=== PATIENT | male | born 1940 | race Caucasian/White ===

== ENCOUNTER → 2019-08-06 18:59 | Outpatient (CLI) | payer MEDICARE, SELFPAY ==
--- NOTE | 2019-08-06 19:03 | DI.RAD.S_ITS ---
PROCEDURE: XR CHEST 2V INDICATIONS: DYSPNEA TECHNIQUE: 2 views of the chest were acquired. COMPARISON: None. FINDINGS: Surgical changes and devices: None. Lungs and pleura: Lungs are mildly hyperinflated but clear. No pleural effusions or pneumothorax. Mediastinum: Mediastinal contours are normal. Prominent central pulmonary arteries. Heart size is normal. Bones and chest wall: No suspicious bony abnormalities. Soft tissues appear unremarkable. IMPRESSION: 1. No acute cardiopulmonary disease. 2. Changes of mild hyperinflation suggests emphysema or asthma. Dictated by: Mariola Cadena M.D. on 08/06/2019 at 21:34 Approved by: Mariola Cadena M.D. on 08/06/2019 at 21:36
[2019-08-06 19:18] LABS: Bacteria Urine None Seen; RBC Urine None Seen (0-5/HPF)
[2019-08-06 19:30] LABS: Mean Corpuscular Volume 89.8 fL (80-100); Red Cell Distribution Width 13.2 % (11.6-14.8)
[2019-08-06 19:36] LABS: Hematocrit 42.1 % (41-53); Hemoglobin 14.8 g/dL (13.5-17.5); Mean Corpuscular HGB Conc 35.1 % (30-36); Mean Corpuscular Hemoglobin 31.5 PG (26-34); Platelet Count 99 X10^3/uL (150-400); Red Blood Cell Count 4.68 X10^6/uL (4.5-5.9); White Blood Cell Count 7.6 X10^3/uL (4.5-11.0)
[2019-08-06 19:37] LABS: Appearance Urine UA CLEAR; Bilirubin Urine UA NEGATIVE (NEGATIVE); Color Urine UA YELLOW; Glucose Urine UA 1+ g/dL (Negative); Ketones Urine UA NEGATIVE (NEGATIVE); Leukocyte Esterase Urine UA NEGATIVE (NEGATIVE); Nitrite Urine UA NEGATIVE (Negative); Occult Blood Urine UA NEGATIVE (Negative); Protein Urine UA NEGATIVE (Negative); Specific Gravity Urine UA 1.025 (1.000-1.035); Urobilinogen Urine UA 0.2 E.U./dL (0.2)
[2019-08-06 19:43] LABS: Culture Indicated Urine Cult Not Indicated; Squamous Epithelial Cell Urine 0-1 /HPF (0-5/HPF); WBC Urine 0-1/HPF (0-5/HPF)
[2019-08-06 19:52] LABS: Alanine Aminotransferase 29 IU/L (<50); Albumin 4.8 g/dL (3.5-5.0); Albumin Globulin Ratio 1.3 (1.0-2.8); Alkaline Phosphatase 90 U/L (38-126); Aspartate Aminotransferase 36 IU/L (17-59); Bilirubin Total 0.5 mg/dL (0.2-1.3); Blood Urea Nitrogen 37 mg/dL (9-20); Calcium 9.8 mg/dL (8.4-10.2); Carbon Dioxide 26 mmol/L (22-32); Chloride 100 mmol/L (98-107); Estimated Glomerular Filt Rate 39.7 mL/min (>60); Globulin 3.7 g/dL (1.7-4.1); Glucose 260 mg/dL (80-110); HEMOLYSIS < 15 (0-50); Potassium 5.2 mmol/L (3.4-5.1); Sodium 135 mmol/L (137-145); Total Protein 8.5 g/dL (6.3-8.2)
[2019-08-06 20:01] LABS: NT-proBNP (BNP-Adult 18+) 66 pg/mL (<450)
[2019-08-06 20:10] LABS: Neutrophils Absolute Manual 4484 /uL (3000-5900); Platelet Estimate Decreased on smear; RBC Morphology Normal Morphology; Total Cells Counted 100
== END ==
PROVIDERS: Referring Provider Internal Medicine; Visit Provider Internal Medicine
DX: R06.00 Dyspnea, unspecified (principal); E11.65 Type 2 diabetes mellitus with hyperglycemia
CPT/HCPCS: 36415; 71046; 80053; 81001; 83880; 85025

== ENCOUNTER → 2019-11-01 12:28 | Outpatient (CLI) | payer MEDICARE, SELFPAY ==
[2019-11-01 14:32] LABS: Add Manual Diff / Slide Review NO; Basophils Absolute Auto 0 /uL (0-100); Basophils Percent Auto 0.3 % (0-2); Eosinophils Absolute Auto 100 /uL (0-450); Eosinophils Percent Auto 1.3 % (2-4); Hematocrit 38.4 % (41-53); Hemoglobin 13.1 g/dL (13.5-17.5); Lymphocytes Absolute Auto 1600 /uL (1100-4500); Mean Corpuscular Hemoglobin 30.6 PG (26-34); Mean Corpuscular Volume 89.8 fL (80-100); Monocytes Absolute Auto 300 /uL (0-900); Monocytes Percent Auto 5.2 % (3-14); Neutrophils Absolute Auto 3700 /uL (1500-7000); Neutrophils Percent Auto 65.2 % (50-75); Platelet Count 133 X10^3/uL (150-400); Red Blood Cell Count 4.27 X10^6/uL (4.5-5.9); White Blood Cell Count 5.7 X10^3/uL (4.5-11.0)
[2019-11-01 14:38] LABS: INR 1.1 (0.9-1.3); Prothrombin Time 12.1 SECONDS (10.1-12.7)
[2019-11-01 14:40] LABS: PTT Partial Thromboplastin Tim 37 SECONDS (26.4-36.2)
== END ==
PROVIDERS: PCP Student in an Organized Health Care Education/Training Program; Referring Provider Student in an Organized Health Care Education/Training Program; Visit Provider Student in an Organized Health Care Education/Training Program
DX: T14.8XXA Other injury of unspecified body region, initial encounter (principal)
CPT/HCPCS: 36415; 85025; 85610; 85730

== ENCOUNTER → 2019-11-13 11:49 | Outpatient (CLI) | payer MEDICARE, SELFPAY ==
--- NOTE | 2019-11-13 | DI.CT.S_ITS ---
PROCEDURE: CT CHEST ABD PEL WO CON INDICATIONS: Pruritis, unspecified TECHNIQUE: After the administration of oral contrast, 5 mm thick sections acquired from the lung apices to the symphysis pubis. 5 mm thick coronal and sagittal reformats acquired, with additional 7 mm coronal MIP reformats through the lungs. For radiation dose reduction, the following was used: automated exposure control, adjustment of mA and/or kV according to patient size. COMPARISON: [facility], CT, ABDOMEN WITH CONTRAST, 06/15/2016, 12:31. FINDINGS: Image quality: Excellent. CHEST: Lungs and pleura: No acute pulmonary opacities. No pleural effusions or pneumothorax. Central and peripheral airways are patent are normal in caliber. Mediastinum: Heart size is normal. Scattered atherosclerotic calcifications of the coronary arteries are noted.No pericardial effusion. No mediastinal adenopathy by CT size criteria. Thoracic aorta and central pulmonary arteries are normal in size. Esophagus is normal in caliber. No hiatal hernia. Chest wall: No axillary or supraclavicular adenopathy by size criteria. Thyroid gland is unremarkable. ABDOMEN: Solid organs: Liver demonstrates heterogeneous attenuation in the central portion of the right hepatic lobe extending towards the bar[place] hepatis. This appears to be a new finding. Biliary stent is again noted. Persistent but decreased conspicuity of intrahepatic biliary ductal dilatation. Gallbladder appears unremarkable. Previously described large heterogeneous cystic mass involving the head and body of the pancreas appears significantly smaller. There is irregularity and heterogeneity of the pancreatic parenchyma with likely main pancreatic ductal dilatation and coarse pancreatic calcification. There is also soft tissue prominence near the ampulla and adjacent duodenum. Lack of intravenous contrast limits further characterization. Spleen is enlarged measuring 14.3 cm in maximum dimension. No adrenal nodules. Atrophic left kidney. Multiple bilateral renal cysts. Persistent right peripelvic renal cysts. No amaury hydronephrosis. No nephrolithiasis seen. Peritoneum and bowel: Mild circumferential thickening of the ascending colon possibly related to incomplete distention. Small and large bowel loops are normal in caliber and wall thickness. No free fluid or air. Normal appendix Nodes and vessels: No retroperitoneal or mesenteric adenopathy by size criteria. Aorta and inferior vena cava are normal in size. Miscellaneous: No ventral hernias. PELVIS: Genitourinary: Bladder wall thickness is normal. Miscellaneous: No inguinal hernias or adenopathy. Bones: No suspicious bony lesions. No acute vertebral body compression fractures. Multilevel degenerative changes of the imaged spine. IMPRESSION: 1. 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 Presence of a biliary stent with persistent intrahepatic ductal dilatation. Given no recent imaging, findings may represent tumor recurrence or progression. Characterization limited by lack of intravenous contrast. 2. Splenomegaly. 3. Mild circumferential thickening of the ascending colon which may be in part due to incomplete distention. Nonspecific colitis either inflammatory or infectious may have a similar appearance. 4. Other chronic findings as above. Dictated by: Lukas Worley M.D. on 11/13/2019 at 15:21 Approved by: Lukas Worley M.D. on 11/13/2019 at 15:40
[2019-11-13 13:29] LABS: Hematocrit 35.3 % (41-53); Hemoglobin 11.9 g/dL (13.5-17.5); Mean Corpuscular HGB Conc 33.7 % (30-36); Mean Corpuscular Hemoglobin 30.3 PG (26-34); Mean Corpuscular Volume 89.8 fL (80-100); Platelet Count 108 X10^3/uL (150-400); Red Blood Cell Count 3.93 X10^6/uL (4.5-5.9); Red Cell Distribution Width 15.7 % (11.6-14.8); White Blood Cell Count 3.2 X10^3/uL (4.5-11.0)
[2019-11-13 13:39] LABS: Appearance Urine UA CLEAR; Bilirubin Urine UA 2+ (NEGATIVE); Glucose Urine UA NEGATIVE (Negative); Ketones Urine UA NEGATIVE (NEGATIVE); Leukocyte Esterase Urine UA NEGATIVE (NEGATIVE); Nitrite Urine UA NEGATIVE (Negative); Occult Blood Urine UA NEGATIVE (Negative); Protein Urine UA NEGATIVE (Negative); Urobilinogen Urine UA 0.2 E.U./dL (0.2)
[2019-11-13 13:40] LABS: Color Urine UA Dark Yellow
[2019-11-13 13:41] LABS: Fibrinogen 486 mg/dL (211-428); INR 1.1 (0.9-1.3); Prothrombin Time 12.3 SECONDS (10.1-12.7)
[2019-11-13 13:43] LABS: PTT Partial Thromboplastin Tim 39 SECONDS (26.4-36.2)
[2019-11-13 13:47] LABS: Neutrophils Absolute Manual 2144 /uL (3000-5900); RBC Morphology Normal Morphology; Total Cells Counted 100
[2019-11-13 14:00] LABS: Ictotest Urine Positive (Negative)
[2019-11-13 14:01] LABS: Alanine Aminotransferase 142 IU/L (<50); Alkaline Phosphatase 257 U/L (38-126); Amylase 72 U/L (30-110); Aspartate Aminotransferase 96 IU/L (17-59); BUN Creatinine Ratio 16.2 (6-22); Bilirubin Total 5.5 mg/dL (0.2-1.3); Blood Urea Nitrogen 18 mg/dL (9-20); Calcium 9.2 mg/dL (8.4-10.2); Carbon Dioxide 23 mmol/L (22-32); Chloride 105 mmol/L (98-107); Estimated Glomerular Filt Rate > 60.0 mL/min (>60); Globulin 3.9 g/dL (1.7-4.1); Glucose 140 mg/dL (80-110); HEMOLYSIS < 15 (0-50); Lipase 164 U/L (23-300); Potassium 4.5 mmol/L (3.4-5.1); Sodium 136 mmol/L (137-145); Total Protein 7.9 g/dL (6.3-8.2)
[2019-11-13 14:01] LABS: Bacteria Urine Occasional (0-1); Culture Indicated Urine Cult Not Indicated; Mucus Urine 1+ (Negative); RBC Urine 0-1/HPF (0-5/HPF); Squamous Epithelial Cell Urine 0-1 /HPF (0-5/HPF); WBC Urine 0-1/HPF (0-5/HPF)
== END ==
PROVIDERS: PCP Internal Medicine; Referring Provider Internal Medicine; Visit Provider Internal Medicine
DX: L29.9 Pruritus, unspecified (principal); R93.89 Abnormal findings on diagnostic imaging of other specified body structures; R63.4 Abnormal weight loss; R23.3 Spontaneous ecchymoses; N18.3 Chronic kidney disease, stage 3 (moderate); I25.10 Atherosclerotic heart disease of native coronary artery without angina pectoris; N28.1 Cyst of kidney, acquired; R16.1 Splenomegaly, not elsewhere classified; K86.9 Disease of pancreas, unspecified; K83.8 Other specified diseases of biliary tract; R39.89 Other symptoms and signs involving the genitourinary system
CPT/HCPCS: 36415; 71250; 74176; 80053; 81001; 82150; 83690; 85002; 85025; 85384; 85610; 85730

== ENCOUNTER → 2019-12-18 11:48 | Outpatient (CLI) | payer MEDICARE, SELFPAY ==
[2019-12-18 12:04] LABS: Bacteria Urine None Seen; RBC Urine None Seen (0-5/HPF); WBC Urine None Seen (0-5/HPF)
[2019-12-18 12:31] LABS: Lactate (Lactic Acid) 1.7 mmol/L (0.7-2.1)
[2019-12-18 13:09] LABS: Add Manual Diff / Slide Review NO; Basophils Absolute Auto 0 /uL (0-100); Basophils Percent Auto 0.3 % (0-2); Eosinophils Absolute Auto 200 /uL (0-450); Eosinophils Percent Auto 2.4 % (2-4); Hematocrit 35.5 % (41-53); Hemoglobin 12.4 g/dL (13.5-17.5); Lymphocytes Absolute Auto 1200 /uL (1100-4500); Lymphocytes Percent Auto 15.8 % (25-40); Mean Corpuscular HGB Conc 34.8 % (30-36); Mean Corpuscular Hemoglobin 30.4 PG (26-34); Mean Corpuscular Volume 87.4 fL (80-100); Monocytes Absolute Auto 500 /uL (0-900); Monocytes Percent Auto 6.3 % (3-14); Neutrophils Absolute Auto 5500 /uL (1500-7000); Neutrophils Percent Auto 75.2 % (50-75); Platelet Count 98 X10^3/uL (150-400); Red Blood Cell Count 4.06 X10^6/uL (4.5-5.9); Red Cell Distribution Width 15.2 % (11.6-14.8); White Blood Cell Count 7.3 X10^3/uL (4.5-11.0)
[2019-12-18 13:11] LABS: Appearance Urine UA CLEAR; Bilirubin Urine UA NEGATIVE (NEGATIVE); Color Urine UA YELLOW; Glucose Urine UA 2+ g/dL (Negative); Ketones Urine UA NEGATIVE (NEGATIVE); Leukocyte Esterase Urine UA NEGATIVE (NEGATIVE); Nitrite Urine UA NEGATIVE (Negative); Occult Blood Urine UA NEGATIVE (Negative); Protein Urine UA NEGATIVE (Negative); Specific Gravity Urine UA 1.015 (1.000-1.035); Urobilinogen Urine UA 0.2 E.U./dL (0.2); pH Urine UA 5.5 (4.5-8.0)
[2019-12-18 13:19] LABS: Culture Indicated Urine Cult Not Indicated; Urine Comments Microscopic Normal
[2019-12-18 13:21] LABS: Alanine Aminotransferase 30 IU/L (<50); Albumin Globulin Ratio 1.2 (1.0-2.8); Alkaline Phosphatase 237 U/L (38-126); Aspartate Aminotransferase 28 IU/L (17-59); BUN Creatinine Ratio 21.2 (6-22); Bilirubin Total 0.9 mg/dL (0.2-1.3); Blood Urea Nitrogen 22 mg/dL (9-20); Calcium 9.6 mg/dL (8.4-10.2); Carbon Dioxide 26 mmol/L (22-32); Chloride 96 mmol/L (98-107); Estimated Glomerular Filt Rate > 60.0 mL/min (>60); Globulin 3.4 g/dL (1.7-4.1); Glucose 314 mg/dL (80-110); HEMOLYSIS < 15 (0-50); Lipase 105 U/L (23-300); Sodium 131 mmol/L (137-145); Total Protein 7.4 g/dL (6.3-8.2)
[2019-12-18 13:22] LABS: Potassium 5.7 mmol/L (3.4-5.1)
[2019-12-18 13:29] LABS: NT-proBNP (BNP-Adult 18+) 100 pg/mL (<450)
== END ==
PROVIDERS: PCP Internal Medicine; Referring Provider Internal Medicine; Visit Provider Internal Medicine
DX: R68.89 Other general symptoms and signs (principal); R17 Unspecified jaundice; I95.9 Hypotension, unspecified; R06.00 Dyspnea, unspecified
CPT/HCPCS: 36415; 80053; 81001; 83605; 83690; 83880; 85025; 87086

== ENCOUNTER → 2019-12-20 11:25 | Outpatient (CLI) | payer MEDICARE, SELFPAY ==
[2019-12-20 13:57] LABS: BUN Creatinine Ratio 19.2 (6-22); Blood Urea Nitrogen 20 mg/dL (9-20); Carbon Dioxide 25 mmol/L (22-32); Chloride 99 mmol/L (98-107); Estimated Glomerular Filt Rate > 60.0 mL/min (>60); Glucose 265 mg/dL (80-110); HEMOLYSIS < 15 (0-50); Potassium 4.5 mmol/L (3.4-5.1); Sodium 131 mmol/L (137-145)
[2019-12-20 14:21] LABS: Sodium Urine Random 20 mmol/L (30-90)
[2019-12-21 13:13] LABS: Osmolality Urine 421 mOsmol/kg (.); Osmolality, Serum 288 mOsmol/kg (280-301)
== END ==
PROVIDERS: PCP Internal Medicine; Referring Provider Internal Medicine; Visit Provider Internal Medicine
DX: E87.5 Hyperkalemia (principal)
CPT/HCPCS: 36415; 80048; 83930; 83935; 84300

== ENCOUNTER → 2020-01-22 11:32 | Outpatient (CLI) | payer MEDICARE, SELFPAY ==
[2020-01-23 09:47] LABS: COVID19 Sendout Not Detected (Not Detect)
== END ==
PROVIDERS: PCP Internal Medicine; Visit Provider Nurse Practitioner
DX: Z11.59 Encounter for screening for other viral diseases (principal)
CPT/HCPCS: 87635

== ENCOUNTER → 2020-02-05 18:44 | Outpatient (ROUT) | payer MEDICARE, SELFPAY ==
[2020-02-07 09:31] LABS: C Peptide 1.7 ng/mL (1.1-4.4)
== END ==
PROVIDERS: PCP Internal Medicine; Visit Provider Internal Medicine
DX: E11.65 Type 2 diabetes mellitus with hyperglycemia (principal)
CPT/HCPCS: 84681

== ENCOUNTER 2021-06-22 12:10 | Emergency (ER) | payer MEDICARE, SELFPAY ==
[2021-06-22] VITALS (9 sets, daily range): BP systolic 124–145; BP diastolic 68–73; PULSE 79–92; RESP 22; TEMP 36.4–37.7; O2SAT 97–100; BMI 22.1
[2021-06-22 13:35] LABS: COVID19 -Nasal RAPID Negative (Negative)
--- NOTE | 2021-06-22 15:47 | DI.RAD.S_ITS ---
PROCEDURE: XR CHEST 1V INDICATIONS: chest pain TECHNIQUE: One view of the chest was acquired. COMPARISON: [facility], CR, XR CHEST 2V, 08/06/2019, 19:00. FINDINGS: Surgical changes and devices: None. Lungs and pleura: Lungs are clear. No pleural effusions or pneumothorax. Mediastinum: Mediastinal contours appear normal. Heart size is normal. Bones and chest wall: No suspicious bony lesions. Overlying soft tissues appear unremarkable. IMPRESSION: No acute cardiopulmonary findings Approved by: Eliel Sutherland M.D. on 06/22/2021 at 15:37
[2021-06-22 15:56] LABS: Add Manual Diff / Slide Review NO; Basophils Absolute Auto 0 /uL (0-100); Basophils Percent Auto 0.2 % (0-2); Eosinophils Absolute Auto 0 /uL (0-450); Eosinophils Percent Auto 0.3 % (2-4); Hematocrit 30.1 % (41-53); Hemoglobin 10.1 g/dL (13.5-17.5); Lymphocytes Absolute Auto 800 /uL (1100-4500); Mean Corpuscular HGB Conc 33.4 % (30-36); Mean Corpuscular Hemoglobin 26.3 PG (26-34); Mean Corpuscular Volume 78.7 fL (80-100); Monocytes Absolute Auto 400 /uL (0-900); Monocytes Percent Auto 5.2 % (3-14); Neutrophils Absolute Auto 6600 /uL (1500-7000); Neutrophils Percent Auto 84.3 % (50-75); Platelet Count 89 X10^3/uL (150-400); Red Blood Cell Count 3.83 X10^6/uL (4.5-5.9); Red Cell Distribution Width 15.5 % (11.6-14.8); White Blood Cell Count 7.8 X10^3/uL (4.5-11.0)
[2021-06-22 16:08] LABS: Alanine Aminotransferase 26 IU/L (<50); Albumin 4.4 g/dL (3.5-5.0); Alkaline Phosphatase 126 U/L (38-126); Aspartate Aminotransferase 32 IU/L (17-59); BUN Creatinine Ratio 14.6 (6-22); Bilirubin Total 0.5 mg/dL (0.2-1.3); Blood Urea Nitrogen 22 mg/dL (9-20); Carbon Dioxide 26 mmol/L (22-32); Chloride 97 mmol/L (98-107); Creatine Kinase 33 U/L (55-170); Estimated Glomerular Filt Rate 44.7 mL/min (>60); Globulin 4.4 g/dL (1.7-4.1); Glucose 152 mg/dL (80-110); HEMOLYSIS < 15 (0-50); Lipase 12 U/L (23-300); Magnesium 1.9 mg/dL (1.6-2.3); Potassium 4.9 mmol/L (3.4-5.1); Sodium 132 mmol/L (137-145); Total Protein 8.8 g/dL (6.3-8.2)
[2021-06-22 16:20] LABS: Troponin I < 0.012 ng/mL (0.01-0.034)
[2021-06-22 19:17] LABS: RBC Urine 0-1/HPF (0-5/HPF); Squamous Epithelial Cell Urine 1-5 /HPF (0-5/HPF); WBC Urine 0-1/HPF (0-5/HPF)
[2021-06-22 19:18] LABS: Bacteria Urine None Seen; Culture Indicated Urine Cult Not Indicated
--- NOTE | 2021-06-22 19:40 | DI.CT.S_ITS ---
PROCEDURE: CT ABDOMEN PELVIS W CON INDICATIONS: Abdominal pain TECHNIQUE: After the administration of intravenous contrast, axial sections acquired from the lung bases to the pubic symphysis. Coronal and sagittal reformats were performed. For radiation dose reduction, the following was used: automated exposure control, adjustment of mA and/or kV according to patient size. COMPARISON: [facility], CT, CT CHEST ABD PEL WO CON, 11/13/2019, 12:48. [facility], CT, ABDOMEN/PELVIS WITH CONTRAST, 01/28/2016, 16:44. FINDINGS: Image quality: Excellent. Lung bases: Unremarkable. Heart: No significant findings. ABDOMEN: Liver: The liver has multiple fluid density foci in the right lobe hepatic segments 6 and 7 consistent with necrotic neoplasm versus liver abscesses. There is mild intrahepatic and extrahepatic biliary ductal dilatation. There are surgical clips adjacent to the liver. Gallbladder: The gallbladder is empty. Biliary ducts: Mild intrahepatic and extrahepatic biliary ductal dilatation. Pancreas: The pancreas is not well visualized and is probably atrophic. The pancreatic tail has a 2.6 centimeter area composed of smaller low densities likely cysts which appears unchanged compared to the prior CT in 2019. . Spleen: The spleen is enlarged. No splenic masses.. Adrenal Glands: Unremarkable. Kidneys and Ureters: The right kidney has a 8 centimeter cyst extending exophytically from the inferior pole. The left kidney is atrophic. Stomach and Bowel: Stomach, small bowel loops, and colon are unremarkable. Peritoneum: No abnormal intraperitoneal fluid. No free air. Ventral Wall: No hernias. Abdominal Nodes: No retroperitoneal or mesenteric adenopathy by size criteria. Vessels: The aorta has atherosclerosis with no aneurysmal dilatation. PELVIS: Pelvic Organs: Unremarkable. Bladder: Unremarkable. Pelvic Nodes: No enlarged lymph nodes. Miscellaneous: No hernias are seen. Bones: Degenerative changes with no focal abnormality. IMPRESSION: 1. 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 2. Intrahepatic and extrahepatic biliary ductal dilatation. Consider MRCP. 3. Splenomegaly. Dictated by: Aaron Velasquez M.D. on 06/22/2021 at 20:10 Approved by: Aaron Velasquez M.D. on 06/22/2021 at 20:23
--- NOTE | 2021-06-22 20:01 | ED.ABDPAIN ---
HPI - Abdominal Pain <Axel Elizabeth PA-C - Last Filed: 06/22/21 21:03> General Chief Complaint: Abdominal Pain Stated Complaint: [place] Very Very Bad, Can't Explain, Pain in Rt Side Time Seen by Provider: 06/22/21 18:36 Source: patient Mode of arrival: Ambulatory History of Present Illness HPI narrative: 80-year-old male with past medical history diabetes, hypertension, Alzheimer's disease presents to the ED with nonspecific symptoms for 3 weeks. Patient is brought in by his , who provided the history. Per the , patient has been complaining of not feeling very well, but is unable to be specific about his symptoms due to the Alzheimer's disease. Patient is a diabetic, on medications. Patient's denies that patient had a fever, chills, cough, nasal congestion, chest pain, dysuria, lightheadedness, dizziness, syncope. Patient's endorse that patient had complained once of right upper quadrant pain close to the right lower ribs. Patient has also complained once of shortness of breath. Patient is vaccinated for COVID-19. Related Data Home Medications Medication Instructions Recorded Confirmed donepezil 5 mg tablet (Aricept) 5 mg PO HS #0 tab 01/28/16 lisinopril 20 mg tablet 30 mg PO QDAY #0 01/28/16 Previous Rx's Medication Instructions Recorded hydrocodone 5 mg-acetaminophen 325 0 tab PO Q6HP PRN #15 tab 01/28/16 mg tablet ondansetron 4 mg disintegrating 4 mg SUBLINGUAL Q6HP PRN #20 odt 01/28/16 tablet (Zofran ODT) Allergies Allergy/AdvReac Type Severity Reaction Status Date / Time No Known Drug Allergies Allergy Unverified 01/22/20 11:31 Review of Systems <Axel Elizabeth PA-C - Last Filed: 06/22/21 21:03> Review of Systems Narrative: Nonspecific symptoms, patient unable to provide ROS due to Alzheimer's disease. ROS for the HPI provided by patient's . ROS Unobtainable: All systems reviewed & are unremarkable except as noted in HPI and below Constitutional Constitutional: Denies chills, Reports fatigue, Denies fever(s), Denies frequent falls, Reports lethargy and Denies weakness Eyes Eyes: Denies change in vision, Denies eye discharge, Denies irritation and Denies loss of vision ENT Ears, Nose, Mouth, and Throat: Denies change in voice, Denies dizziness, Denies neck pain, Denies sore throat and Denies throat swelling Cardiovascular Cardiovascular: Denies chest pain, Denies irregular heart rhythm, Denies lightheadedness, Denies palpitations, Denies dyspnea, Denies dyspnea on exertion and Denies orthopnea Respiratory Respiratory: Denies cough, Denies dyspnea, Denies dyspnea on exertion and Denies wheezing Gastrointestinal Gastrointestinal: Denies abdominal pain, Denies change in bowel habits, Denies diarrhea, Denies nausea and Denies vomiting Genitourinary Genitourinary: Denies hematuria, Denies flank pain, Denies urinary incontinence and Denies urinary urgency Musculoskeletal Musculoskeletal: Denies back pain, Denies muscle weakness, Denies neck pain, Denies numbness and Denies tingling Integumentary/Breasts Skin/Breast: Denies pruritus, Denies erythema, Denies rash and Denies wounds Neurologic Neurologic: Denies behavioral changes, Denies confusion, Denies dizziness, Denies frequent falls, Denies loss of vision, Denies numbness, Denies tingling and Denies weakness Psychiatric Psychiatric: Denies anxiety, Denies behavioral changes, Denies confusion, Denies depression, Denies homicidal ideation and Denies suicidal ideation Endocrine Endocrine: Reports fatigue, Denies flushing and Denies palpitations Hematologic/Lymphatic Hematologic/Lymphatic: Denies easy bruising Allergic/Immunologic Allergic/Immunologic: Denies urticaria, Denies throat swelling and Denies wheezing Patient History <Axel Elizabeth PA-C - Last Filed: 06/22/21 21:03> Social History Smoking Status: Never smoker Smoking Status: Never smoker Substance Use Type: does not use Exam <Axel Elizabeth PA-C - Last Filed: 06/22/21 21:03> Initial Vital Signs Initial Vital Signs: Vital Signs Temperature 97.5 F L 06/22/21 12:44 Pulse Rate 92 H 06/22/21 12:44 Respiratory Rate 06/22/21 12:44 Blood Pressure 124/73 06/22/21 12:44 Pulse Oximetry 100 06/22/21 12:44 Const General: cooperative and comfortable HENMT Head: normal to inspection Eyes General: appearance normal, both eyes and all related structures Neck Neck: normal visual inspection Chest Chest: normal inspection of the chest Resp Effort & Inspection: normal respiratory effort Auscultation: clear to auscultation bilaterally Cardio Rate: regular rate Rhythm: regular rhythm GI Other: Abdomen is soft, nondistended, nontender to palpation. General: No CVA tenderness Back/Spine/Pelvis Back: normal to inspection Skin General: no rashes or lesions noted Neuro General: patient alert, patient awake and patient oriented x3 Extrem General: normal to inspection Psych Appearance: grossly normal <Mirella Leone MD - Last Filed: 06/29/21 04:17> Initial Vital Signs Initial Vital Signs: Vital Signs Temperature 97.5 F L 06/22/21 12:44 Pulse Rate 92 H 06/22/21 12:44 Respiratory Rate 22 06/22/21 12:44 Blood Pressure 124/73 06/22/21 12:44 Pulse Oximetry 100 06/22/21 12:44 Course <Axel Elizabeth PA-C - Last Filed: 06/22/21 21:03> Orders Ordered: Discontinued Medications Acetaminophen (Acetaminophen 325 Mg Tablet) 975 mg PO NOW ONE Stop: 06/22/21 20:02 Last Admin: 06/22/21 20:23 Dose: 975 mg Documented by: SHERRI Ondansetron HCl (Ondansetron 4 Mg/2 Ml Inj) 4 mg IV NOW ONE Stop: 06/22/21 19:41 Last Admin: 06/22/21 20:23 Dose: 4 mg Documented by: SHERRI Vital Signs Vital signs: Vital Signs - 8 hr 06/22/21 18:42 06/22/21 18:43 06/22/21 19:00 Temperature 99.9 F H Pulse Rate 89 88 Blood Pressure Pulse Oximetry 97 97 06/22/21 19:30 06/22/21 20:04 06/22/21 20:28 Temperature Pulse Rate 92 H 91 H 86 Blood Pressure 145/68 H Pulse Oximetry 97 99 98 <Mirella Leone MD - Last Filed: 06/29/21 04:17> Orders Ordered: Discontinued Medications Acetaminophen (Acetaminophen 325 Mg Tablet) 975 mg PO NOW ONE Stop: 06/22/21 20:02 Last Admin: 06/22/21 20:23 Dose: 975 mg Documented by: SHERRI Ondansetron HCl (Ondansetron 4 Mg/2 Ml Inj) 4 mg IV NOW ONE Stop: 06/22/21 19:41 Last Admin: 06/22/21 20:23 Dose: 4 mg Documented by: SHERRI Vital Signs Vital signs: Vital Signs - 8 hr 06/22/21 18:42 06/22/21 18:43 06/22/21 19:00 Temperature 99.9 F H Pulse Rate 89 88 Blood Pressure Pulse Oximetry 97 97 06/22/21 19:30 06/22/21 20:04 06/22/21 20:28 Temperature Pulse Rate 92 H 91 H 86 Blood Pressure 145/68 H Pulse Oximetry 97 99 98 MDM - Abdominal Pain <Axel Elizabeth PA-C - Last Filed: 06/22/21 21:03> Lab Data Attestation: I reviewed the patient's lab results. Lab results narrative: Labs within normal limits. UA negative for UTI Result diagrams: 06/22/21 15:45 06/22/21 15:45 Labs: Lab Results 06/22/21 06/22/21 06/22/21 Range/Units 12:50 15:45 15:45 WBC 7.8 (4.5-11.0) X10^3/uL RBC 3.83 L (4.5-5.9) X10^6/uL Hgb 10.1 L (13.5-17.5) g/dL Hct 30.1 L (41-53) % MCV 78.7 L (80-100) fL MCH 26.3 (26-34) PG MCHC 33.4 (30-36) % RDW 15.5 H (11.6-14.8) % Plt Count 89 L (150-400) X10^3/uL Neut % (Auto) 84.3 H (50-75) % Lymph % (Auto) 10.0 L (25-40) % [place] % (Auto) 5.2 (3-14) % Eos % (Auto) 0.3 L (2-4) % Baso % (Auto) 0.2 (0-2) % Neut # (Auto) 6600 (5493-2730) /uL Lymph # (Auto) 800 L (6699-8406) /uL [place] # (Auto) 400 (0-900) /uL Eos # (Auto) 0 (0-450) /uL Baso # (Auto) 0 (0-100) /uL Sodium 132 L (137-145) mmol/L Potassium 4.9 (3.4-5.1) mmol/L Chloride 97 L (98-107) mmol/L Carbon Dioxide 26 (22-32) mmol/L BUN 22 H (9-20) mg/dL Creatinine 1.51 H (0.66-1.25) mg/dL Estimated GFR 44.7 L (>60) mL/min BUN/Creatinine Ratio 14.6 (6-22) Glucose 152 H (80-110) mg/dL Calcium 9.0 (8.4-10.2) mg/dL Magnesium 1.9 (1.6-2.3) mg/dL Total Bilirubin 0.5 (0.2-1.3) mg/dL AST 32 (17-59) IU/L ALT 26 (<50) IU/L Alkaline Phosphatase 126 (38-126) U/L Total Creatine Kinase 33 L (55-170) U/L CK-MB (CK-2) TNP CK-MB (CK-2) Rel Index TNP Troponin I < 0.012 (0.01-0.034) ng/mL Total Protein 8.8 H (6.3-8.2) g/dL Albumin 4.4 (3.5-5.0) g/dL Globulin 4.4 H (1.7-4.1) g/dL Albumin/Globulin Ratio 1.0 (1.0-2.8) Lipase 12 L (23-300) U/L Urine RBC (0-5/HPF) Urine WBC (0-5/HPF) Ur Squamous Epith Cells (0-5/HPF) Urine Bacteria (None) Ur Culture Indicated? SARS-CoV-2 (PCR) Negative (Negative) 06/22/21 Range/Units 18:54 WBC (4.5-11.0) X10^3/uL RBC (4.5-5.9) X10^6/uL Hgb (13.5-17.5) g/dL Hct (41-53) % MCV (80-100) fL MCH (26-34) PG MCHC (30-36) % RDW (11.6-14.8) % Plt Count (150-400) X10^3/uL Neut % (Auto) (50-75) % Lymph % (Auto) (25-40) % [place] % (Auto) (3-14) % Eos % (Auto) (2-4) % Baso % (Auto) (0-2) % Neut # (Auto) (5595-0611) /uL Lymph # (Auto) (5734-8733) /uL [place] # (Auto) (0-900) /uL Eos # (Auto) (0-450) /uL Baso # (Auto) (0-100) /uL Sodium (137-145) mmol/L Potassium (3.4-5.1) mmol/L Chloride (98-107) mmol/L Carbon Dioxide (22-32) mmol/L BUN (9-20) mg/dL Creatinine (0.66-1.25) mg/dL Estimated GFR (>60) mL/min BUN/Creatinine Ratio (6-22) Glucose (80-110) mg/dL Calcium (8.4-10.2) mg/dL Magnesium (1.6-2.3) mg/dL Total Bilirubin (0.2-1.3) mg/dL AST (17-59) IU/L ALT (<50) IU/L Alkaline Phosphatase (38-126) U/L Total Creatine Kinase (55-170) U/L CK-MB (CK-2) CK-MB (CK-2) Rel Index Troponin I (0.01-0.034) ng/mL Total Protein (6.3-8.2) g/dL Albumin (3.5-5.0) g/dL Globulin (1.7-4.1) g/dL Albumin/Globulin Ratio (1.0-2.8) Lipase (23-300) U/L Urine RBC 0-1/hpf (0-5/HPF) Urine WBC 0-1/hpf (0-5/HPF) Ur Squamous Epith Cells 1-5 /hpf (0-5/HPF) Urine Bacteria None seen (None) Ur Culture Indicated? Cult not indicated SARS-CoV-2 (PCR) (Negative) Point of care testing: Point of Care Testing Glucose POC 120 Urine Dip Bedside Urine Glucose Negative Bedside Urine Bilirubin - Negative Bedside Urine Ketone +/- 5 Urine Specific [place] 1.025 Bedside Urine Occult Blood - Negative Bedside Urine pH 6.0 Bedside Urine Protein + 30 Bedside Urine Urobilinogen - Negative Bedside Urine Nitrite - Negative Bedside Urine Leukocytes - Negative Esterase Imaging Data CT scan - abdomen/pelvis: Radiologist's Impression: PROCEDURE:? CT ABDOMEN PELVIS W CON ? INDICATIONS:? Abdominal pain ? TECHNIQUE:? After the administration of intravenous contrast, axial sections acquired from the lung bases to the pubic symphysis.? Coronal and sagittal reformats were performed.? For radiation dose reduction, the following was used:? automated exposure control, adjustment of mA and/or kV according to patient size.? ? COMPARISON:? [facility], CT, CT CHEST ABD PEL WO CON, 11/13/2019, 12:48.? [facility], CT, ABDOMEN/PELVIS WITH CONTRAST, 01/28/2016, 16:44. ? FINDINGS:? Image quality:? Excellent.? ? Lung bases:? Unremarkable. Heart:? No significant findings. ? ABDOMEN: Liver:? The liver has multiple fluid density foci in the right lobe hepatic segments 6 and 7 consistent with necrotic neoplasm versus liver abscesses.? There is mild intrahepatic and extrahepatic biliary ductal dilatation.? There are surgical clips adjacent to the liver. Gallbladder:? The gallbladder is empty. Biliary ducts:? Mild intrahepatic and extrahepatic biliary ductal dilatation. Pancreas:? The pancreas is not well visualized and is probably atrophic.? The pancreatic tail has a 2.6 centimeter area composed of smaller low densities likely cysts which appears unchanged compared to the prior CT in 2019. .? Spleen:? The spleen is enlarged.? No splenic masses..? ? Adrenal Glands:? Unremarkable.? ? Kidneys and Ureters:? The right kidney has a 8 centimeter cyst extending exophytically from the inferior pole.? The left kidney is atrophic. ? Stomach and Bowel:? Stomach, small bowel loops, and colon are unremarkable.? Peritoneum:? No abnormal intraperitoneal fluid.? No free air.? ? Ventral Wall: ? No hernias.? Abdominal Nodes:? No retroperitoneal or mesenteric adenopathy by size criteria.? Vessels:? The aorta has atherosclerosis with no aneurysmal dilatation. ? PELVIS: Pelvic Organs:? Unremarkable.? ? Bladder:? Unremarkable.? ? Pelvic Nodes: No enlarged lymph nodes.? Miscellaneous: No hernias are seen. ? ? ? Bones:? Degenerative changes with no focal abnormality. ? IMPRESSION:? 1. 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 2. Intrahepatic and extrahepatic biliary ductal dilatation.? Consider MRCP. 3. Splenomegaly.? ? ? Dictated by: Aaron Velasquez M.D. on 06/22/2021 at 20:10 ? ? Approved by: Aaron Velasquez M.D. on 06/22/2021 at 20:23 ? Chest x-ray: Radiologist's Impression: PROCEDURE:? XR CHEST 1V ? INDICATIONS:? chest pain ? TECHNIQUE:? One view of the chest was acquired.? ? COMPARISON:? [facility], CR, XR CHEST 2V, 08/06/2019, 19:00. ? FINDINGS:? ? Surgical changes and devices:? None.? ? Lungs and pleura:? Lungs are clear.? No pleural effusions or pneumothorax.? ? Mediastinum:? Mediastinal contours appear normal.? Heart size is normal.? ? Bones and chest wall:? No suspicious bony lesions.? Overlying soft tissues appear unremarkable.? ? IMPRESSION:? No acute cardiopulmonary findings ? ? ? Approved by: Eliel Sutherland M.D. on 06/22/2021 at 15:37? MDM Narrative Medical decision making narrative: 80-year-old male with past medical history diabetes, hypertension, Alzheimer's disease presents to the ED with nonspecific symptoms for 3 weeks. Concern for ACS versus pneumonia versus UTI versus intra-abdominal infection. Will order labs, chest x-ray, EKG, troponin, lactate, CT abdomen pelvis, UA. Will give Tylenol for fever. Will reassess. Labs within normal limits, UA normal, chest x-ray normal. CT shows possible necrotic neoplasms in the pancreas versus hepatic abscesses. Dr. 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 Discussed with patient and his , who verbalized understanding. ED return precautions discussed. <Mirella Leone MD - Last Filed: 06/29/21 04:17> Lab Data Labs: Lab Results 06/22/21 06/22/21 06/22/21 Range/Units 12:50 15:45 15:45 WBC 7.8 (4.5-11.0) X10^3/uL RBC 3.83 L (4.5-5.9) X10^6/uL Hgb 10.1 L (13.5-17.5) g/dL Hct 30.1 L (41-53) % MCV 78.7 L (80-100) fL MCH 26.3 (26-34) PG MCHC 33.4 (30-36) % RDW 15.5 H (11.6-14.8) % Plt Count 89 L (150-400) X10^3/uL Neut % (Auto) 84.3 H (50-75) % Lymph % (Auto) 10.0 L (25-40) % [place] % (Auto) 5.2 (3-14) % Eos % (Auto) 0.3 L (2-4) % Baso % (Auto) 0.2 (0-2) % Neut # (Auto) 6600 (2574-0493) /uL Lymph # (Auto) 800 L (6850-4680) /uL [place] # (Auto) 400 (0-900) /uL Eos # (Auto) 0 (0-450) /uL Baso # (Auto) 0 (0-100) /uL Sodium 132 L (137-145) mmol/L Potassium 4.9 (3.4-5.1) mmol/L Chloride 97 L (98-107) mmol/L Carbon Dioxide 26 (22-32) mmol/L BUN 22 H (9-20) mg/dL Creatinine 1.51 H (0.66-1.25) mg/dL Estimated GFR 44.7 L (>60) mL/min BUN/Creatinine Ratio 14.6 (6-22) Glucose 152 H (80-110) mg/dL Calcium 9.0 (8.4-10.2) mg/dL Magnesium 1.9 (1.6-2.3) mg/dL Total Bilirubin 0.5 (0.2-1.3) mg/dL AST 32 (17-59) IU/L ALT 26 (<50) IU/L Alkaline Phosphatase 126 (38-126) U/L Total Creatine Kinase 33 L (55-170) U/L CK-MB (CK-2) TNP CK-MB (CK-2) Rel Index TNP Troponin I < 0.012 (0.01-0.034) ng/mL Total Protein 8.8 H (6.3-8.2) g/dL Albumin 4.4 (3.5-5.0) g/dL Globulin 4.4 H (1.7-4.1) g/dL Albumin/Globulin Ratio 1.0 (1.0-2.8) Lipase 12 L (23-300) U/L Urine RBC (0-5/HPF) Urine WBC (0-5/HPF) Ur Squamous Epith Cells (0-5/HPF) Urine Bacteria (None) Ur Culture Indicated? SARS-CoV-2 (PCR) Negative (Negative) 06/22/21 Range/Units 18:54 WBC (4.5-11.0) X10^3/uL RBC (4.5-5.9) X10^6/uL Hgb (13.5-17.5) g/dL Hct (41-53) % MCV (80-100) fL MCH (26-34) PG MCHC (30-36) % RDW (11.6-14.8) % Plt Count (150-400) X10^3/uL Neut % (Auto) (50-75) % Lymph % (Auto) (25-40) % [place] % (Auto) (3-14) % Eos % (Auto) (2-4) % Baso % (Auto) (0-2) % Neut # (Auto) (3883-9811) /uL Lymph # (Auto) (9095-9578) /uL [place] # (Auto) (0-900) /uL Eos # (Auto) (0-450) /uL Baso # (Auto) (0-100) /uL Sodium (137-145) mmol/L Potassium (3.4-5.1) mmol/L Chloride (98-107) mmol/L Carbon Dioxide (22-32) mmol/L BUN (9-20) mg/dL Creatinine (0.66-1.25) mg/dL Estimated GFR (>60) mL/min BUN/Creatinine Ratio (6-22) Glucose (80-110) mg/dL Calcium (8.4-10.2) mg/dL Magnesium (1.6-2.3) mg/dL Total Bilirubin (0.2-1.3) mg/dL AST (17-59) IU/L ALT (<50) IU/L Alkaline Phosphatase (38-126) U/L Total Creatine Kinase (55-170) U/L CK-MB (CK-2) CK-MB (CK-2) Rel Index Troponin I (0.01-0.034) ng/mL Total Protein (6.3-8.2) g/dL Albumin (3.5-5.0) g/dL Globulin (1.7-4.1) g/dL Albumin/Globulin Ratio (1.0-2.8) Lipase (23-300) U/L Urine RBC 0-1/hpf (0-5/HPF) Urine WBC 0-1/hpf (0-5/HPF) Ur Squamous Epith Cells 1-5 /hpf (0-5/HPF) Urine Bacteria None seen (None) Ur Culture Indicated? Cult not indicated SARS-CoV-2 (PCR) (Negative) Point of care testing: Point of Care Testing Glucose POC 120 Urine Dip Bedside Urine Glucose Negative Bedside Urine Bilirubin - Negative Bedside Urine Ketone +/- 5 Urine Specific [place] 1.025 Bedside Urine Occult Blood - Negative Bedside Urine pH 6.0 Bedside Urine Protein + 30 Bedside Urine Urobilinogen - Negative Bedside Urine Nitrite - Negative Bedside Urine Leukocytes - Negative Esterase Discharge Plan Departure Patient Disposition: Home Clinical Impression: Abdominal pain Instructions: DI for Abdominal Pain-Adult Activity Restrictions/Additional Instructions: You were evaluated in the ED today for abdominal pain. Your labs, urinalysis, chest x-ray, EKG were normal. Your CT showed possible hepatic abscesses versus necrotic neoplasms in the pancreas. Please follow-up with your PCP as soon as possible for further workup of these findings. Return to the ED if your symptoms worsen, including fevers, chills, abdominal pain, nausea, vomiting, chest pain, shortness of breath. Prescriptions: No Action lisinopril 20 MG tablet 30 mg PO QDAY Qty: 0 0RF donepezil [Aricept] 5 MG tablet 5 mg PO HS Qty: 0 0RF ondansetron [Zofran ODT] 4 MG tablet,disintegrating 4 mg Sublingual Q6HP PRNQty: 20 0RF hydrocodone-acetaminophen 5 MG/325 MG tablet 0 tab PO Q6HP PRNQty: 15 0RF Referrals: Rupert Fields MD [Primary Care Provider] - <Mirella Leone MD - Last Filed: 06/29/21 04:17> Cosign ED Attending Cosignature Attestation: I was immediately available in the department for consultation throughout this patient's visit. I agree with documentation as above. Mirella Leone MD
[2021-06-22] MEDS: ONDANSETRON 4 MG/2 ML INJ IV (20:23)
[2021-06-22] MEDS: ACETAMINOPHEN 325 MG TABLET 975 MG PO (20:23)
== END 2021-06-22 21:06 | disposition home or self-care (01) ==
PROVIDERS: Emergency Medicine; Emergency Provider Student in an Organized Health Care Education/Training Program; PCP Internal Medicine
DX: R10.11 Right upper quadrant pain (principal); R06.02 Shortness of breath; R03.0 Elevated blood-pressure reading, without diagnosis of hypertension; Z20.822 Contact with and (suspected) exposure to COVID-19
CPT/HCPCS: 36415; 71045; 74177; 80053; 81003; 81015; 82550; 82962; 83690; 83735; 84484; 85025; 87635; 93005; 96374; 99284; C9803; J2405; Q9967

== ENCOUNTER → 2021-10-21 11:37 | Outpatient (CLI) | payer MEDICARE, SELFPAY ==
[2021-10-21 13:45] LABS: Add Manual Diff / Slide Review NO; Basophils Absolute Auto 0 /uL (0-100); Basophils Percent Auto 0.3 % (0-2); Eosinophils Absolute Auto 100 /uL (0-450); Eosinophils Percent Auto 2.2 % (2-4); Hematocrit 30.1 % (41-53); Lymphocytes Absolute Auto 800 /uL (1100-4500); Lymphocytes Percent Auto 28.1 % (25-40); Mean Corpuscular HGB Conc 33.3 % (30-36); Mean Corpuscular Hemoglobin 25.2 PG (26-34); Mean Corpuscular Volume 75.5 fL (80-100); Monocytes Absolute Auto 200 /uL (0-900); Monocytes Percent Auto 7.7 % (3-14); Neutrophils Absolute Auto 1800 /uL (1500-7000); Neutrophils Percent Auto 61.7 % (50-75); Platelet Count 50 X10^3/uL (150-400); Red Cell Distribution Width 17.2 % (11.6-14.8)
[2021-10-21 14:06] LABS: INR 1.2 (0.9-1.3); Prothrombin Time 13.6 SECONDS (10.1-12.7)
[2021-10-21 14:09] LABS: PTT Partial Thromboplastin Tim 33 SECONDS (26.4-36.2)
== END ==
PROVIDERS: PCP Internal Medicine; Referring Provider Internal Medicine; Visit Provider Internal Medicine
DX: K76.9 Liver disease, unspecified (principal)
CPT/HCPCS: 36415; 85025; 85610; 85730

== ENCOUNTER → 2021-10-23 12:41 | Outpatient (CLI) | payer MEDICARE, SELFPAY ==
--- NOTE | 2021-10-23 | DI.CT.S_ITS ---
PROCEDURE: CT ABDOMEN WO/W CON INDICATIONS: Abscess of liver TECHNIQUE: 4 phase scanning was performed. Non-contrast 5 mm axial sections acquired from the diaphragm to the iliac crests. Following the administration of intravenous contrast, 5 mm thick arterial-phase, portal venous-phase, and 5-minute delayed phase images were acquired through the liver. 5 mm thick coronal and sagittal reformats were performed. For radiation dose reduction, the following was used: automated exposure control, adjustment of mA and/or kV according to patient size. COMPARISON: [facility], MR, MR ABDOMEN LIVER PROTOCOL, 07/02/2021, 11:05. [facility], CT, CT ABDOMEN WITH CONTRAST, 07/23/2021, 16:48. [facility], CT, CT ABDOMEN WITH CONTRAST, 07/08/2021, 14:08. FINDINGS: Image quality: Excellent. Lung bases: Lung bases are clear. Heart size is normal. Liver: Subtle asymmetric decreased enhancement in the anterior right lobe of the liver. There are adjacent surgical clips. There is subtle curvilinear hypodensity in the posterior right lobe of the liver, (5/23), decreased. This is at the site of prior percutaneous pigtail drain. Other solid organs: Gallbladder decompressed. There is intra hepatic ductal dilatation. There are a few small foci of pneumobilia. There is increased density in the region of the head of the pancreas, (3/28). The pancreatic tail and body are atrophic. There is dilatation of the pancreatic duct in the tail. Spleen is mildly enlarged measuring 13.1 cm. No adrenal nodules. The left kidney is atrophic. There are a few simple appearing cysts. Largest cyst on the right measures 8.3 cm. Right peripelvic cysts. Nodes and vessels: No retroperitoneal or mesenteric adenopathy by size criteria. No abdominal aortic aneurysm. The portal vein confluence is attenuated. 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 Bowel and peritoneum: Unenhanced bowel loops are normal in caliber. Appendix is not dilated. No free fluid or air. Bones: No suspicious bony lesions. Multilevel DDD. No vertebral body compression fractures. Miscellaneous: No ventral hernias. IMPRESSION: 1. Curvilinear hypodensity in the right lobe of the liver is decreased compared to 08/07/2021. This is consistent with improving hepatic abscess. 2. Subtle hypodensity in the anterior right lobe of the liver is less prominent. This could be the sequelae of prior procedure. 3. Subtle increased density in the region of the pancreatic head. The pancreatic duct in the tail is dilated and the pancreas is atrophic. This could be due to pancreatic neoplasm. 4. 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 Mild splenomegaly. 5. Atrophic left kidney. Dictated by: Doe Mcconnell M.D. on 10/23/2021 at 15:54 Approved by: Doe Mcconnell M.D. on 10/23/2021 at 16:10
[2021-10-23 13:31] LABS: Alanine Aminotransferase 16 IU/L (<50); Albumin 4.1 g/dL (3.5-5.0); Albumin Globulin Ratio 1.6 (1.0-2.8); Alkaline Phosphatase 98 U/L (38-126); Aspartate Aminotransferase 27 IU/L (17-59); BUN Creatinine Ratio 20.4 (6-22); Bilirubin Total 0.4 mg/dL (0.2-1.3); Blood Urea Nitrogen 29 mg/dL (9-20); Calcium 8.4 mg/dL (8.4-10.2); Carbon Dioxide 22 mmol/L (22-32); Chloride 106 mmol/L (98-107); Estimated Glomerular Filt Rate 50 mL/min (>60); Globulin 2.6 g/dL (1.7-4.1); Glucose 262 mg/dL (80-110); HEMOLYSIS < 15 (0-50); Potassium 5.2 mmol/L (3.4-5.1); Sodium 136 mmol/L (137-145); Total Protein 6.7 g/dL (6.3-8.2)
== END ==
PROVIDERS: PCP Internal Medicine; Referring Provider Internal Medicine; Visit Provider Internal Medicine
DX: K75.0 Abscess of liver (principal); K86.89 Other specified diseases of pancreas; N26.1 Atrophy of kidney (terminal); I85.00 Esophageal varices without bleeding; R16.1 Splenomegaly, not elsewhere classified
CPT/HCPCS: 36415; 74170; 80053; Q9967